=== PATIENT | male | born 1990 | race Caucasian/White ===

== ENCOUNTER 2020-11-17 17:45 | Emergency (ER) | payer BC ==
[~2020-11-17] VITALS: Ht 195.6 cm; Wt 120.2 kg
[~2020-11-17 17:45] MED LIST: ANTIBIODICS; BENZ100A PO; COUGH MED; FAMO20 PO; HYDACE5 PO; NAPR550 PO; PROM25 PO; RXALBOI INH; RXNAPNA550 PO
[2020-11-17] MEDS ORDERED: GUAI600T33 (17:56)
[2020-11-17 19:34] LABS: Influenza A, PCR Negative (NEGATIVE); Influenza B, PCR Negative (NEGATIVE); Resp Syncytial Virus, PCR Negative (NEGATIVE); SARS-Cov-2 (COVID-19) PCR, MMC Negative (NEGATIVE)
== END 2020-11-17 19:50 | disposition home or self-care (01) ==
LOC: ER 17:45
PROVIDERS: Emergency Medicine
DX: R05 Cough (principal); Z20.828 Contact with and (suspected) exposure to other viral communicable diseases; Z79.899 Other long term (current) drug therapy
CPT/HCPCS: 0241U; 99283

== ENCOUNTER → 2021-07-15 | Outpatient (CLI) | payer BC ==
[~2021-07-15] MED LIST changes: +GUAI600T33
[2021-07-17 17:20] LABS: CORONAVIRUS (COVID19) CSH-NRL Negative (Negative)
== END ==
LOC: LAB SHORT 13:05 → LAB 13:05
PROVIDERS: Physician Assistant Medical
DX: Z20.822 Contact with and (suspected) exposure to COVID-19 (principal)
CPT/HCPCS: U0003

== ENCOUNTER 2022-01-05 13:22 | Emergency (ER) | payer BC ==
[~2022-01-05] VITALS: Ht 195.6 cm; Wt 127.0 kg
[2022-01-05] MEDS ORDERED: ONDA4 PO (14:03)
[2022-01-05] MEDS ORDERED: BENZ100A PO (14:03)
== END 2022-01-05 14:17 | disposition home or self-care (01) ==
LOC: ER 13:22
DX: U07.1 COVID-19 (principal)
CPT/HCPCS: 99282

== ENCOUNTER → 2023-04-23 | Outpatient (CLI) | payer BC ==
[~2023-04-23] MED LIST changes: +ONDA4 PO
[2023-04-23 15:13] LABS: BASOPHILS ABSOLUTE AUTO 0.01 K/mm3 (0.00-0.23); BASOPHILS PERCENT AUTO 0 % (0-2); EOSINOPHILS ABSOLUTE AUTO 0.04 K/mm3 (0.00-0.68); EOSINOPHILS PERCENT AUTO 1 % (0-6); Hematocrit 41.8 % (37.0-53.0); Hemoglobin 15.1 g/dL (13.5-17.5); IMMATURE GRAN ABSOLUTE AUTO 0.02 K/mm3 (0.00-0.10); IMMATURE GRAN PERCENT AUTO 0 % (0-1); LYMPHOCYTES ABSOLUTE AUTO 2.05 K/mm3 (0.84-5.20); LYMPHOCYTES PERCENT AUTO 39 % (21-46); MONOCYTES PERCENT AUTO 10 % (4-13); Mean Corpuscular HGB 30.6 pg (26.0-34.0); Mean Corpuscular HGB Conc 36.1 g/dL (31.5-36.5); Mean Corpuscular Volume 85 fL (80-100); Mean Platelet Volume 10.3 fL (9.1-12.4); NEUTROPHILS ABSOLUTE AUTO 2.62 K/mm3 (1.96-9.15); NEUTROPHILS PERCENT AUTO 50 % (41-73); Platelet Count 199 K/mm3 (150-400); RDW Coefficient Variation 12.5 % (11.7-14.2); RDW Standard Deviation 37.8 fL (35.1-46.3); Red Blood Cell Count 4.93 M/mm3 (4.30-5.90); White Blood Cell Count 5.24 K/mm3 (4.00-11.30)
[2023-04-23 16:17] LABS: Albumin, Blood 3.7 g/dL (3.4-5.0); Albumin/Globulin Ratio 1.2 (0.8-1.8); Bilirubin, Total 0.6 mg/dL (0.1-1.0); Bun/Creatinine Ratio 12.1 (12.0-20.0); Calcium, Blood 8.7 mg/dL (8.5-10.1); Creatinine, Blood 1.16 mg/dL (0.60-1.20); Globulin, Blood 3.2 g/dL (2.2-4.0); Potassium, Blood 3.8 mmol/L (3.5-5.5); Total Protein, Blood 6.9 g/dL (6.4-8.2)
== END | disposition home or self-care (01) ==
LOC: LAB 15:08 → LAB SHORT 15:08
PROVIDERS: Emergency Medicine
DX: R10.9 Unspecified abdominal pain (principal)
CPT/HCPCS: 80053; 83690; 83880; 84484; 85025

== ENCOUNTER 2023-06-01 01:36 | Emergency (ER) | payer BC ==
[~2023-06-01] VITALS: Ht 195.6 cm; Wt 117.9 kg
[2023-06-01 02:12] LABS: BASOPHILS ABSOLUTE AUTO 0.05 K/mm3 (0.00-0.23); BASOPHILS PERCENT AUTO 1 % (0-2); EOSINOPHILS PERCENT AUTO 1 % (0-6); Hematocrit 41.5 % (37.0-53.0); Hemoglobin 15.1 g/dL (13.5-17.5); IMMATURE GRAN ABSOLUTE AUTO 0.01 K/mm3 (0.00-0.10); IMMATURE GRAN PERCENT AUTO 0 % (0-1); LYMPHOCYTES ABSOLUTE AUTO 4.21 K/mm3 (0.84-5.20); LYMPHOCYTES PERCENT AUTO 52 % (21-46); MONOCYTES ABSOLUTE AUTO 0.55 K/mm3 (0.16-1.47); MONOCYTES PERCENT AUTO 7 % (4-13); Mean Corpuscular HGB 30.7 pg (26.0-34.0); Mean Corpuscular HGB Conc 36.4 g/dL (31.5-36.5); Mean Corpuscular Volume 84 fL (80-100); Mean Platelet Volume 10.5 fL (9.1-12.4); NEUTROPHILS ABSOLUTE AUTO 3.25 K/mm3 (1.96-9.15); NEUTROPHILS PERCENT AUTO 40 % (41-73); Platelet Count 247 K/mm3 (150-400); RDW Coefficient Variation 12.5 % (11.7-14.2); RDW Standard Deviation 38.4 fL (35.1-46.3); Red Blood Cell Count 4.92 M/mm3 (4.30-5.90); White Blood Cell Count 8.17 K/mm3 (4.00-11.30)
[2023-06-01 02:30] LABS: Albumin, Blood 3.8 g/dL (3.4-5.0); Albumin/Globulin Ratio 1.2 (0.8-1.8); Bilirubin, Total 0.5 mg/dL (0.1-1.0); Bun/Creatinine Ratio 14.3 (12.0-20.0); Calcium, Blood 9.3 mg/dL (8.5-10.1); Creatinine, Blood 0.98 mg/dL (0.60-1.20); Globulin, Blood 3.3 g/dL (2.2-4.0); Potassium, Blood 3.3 mmol/L (3.5-5.5); Total Protein, Blood 7.1 g/dL (6.4-8.2)
[2023-06-01] MEDS ORDERED: IBU600 MG PO (03:09)
[2023-06-01 03:28] VITALS: BP 132/78
== END 2023-06-01 03:27 | disposition home or self-care (01) ==
LOC: ER 01:36
PROVIDERS: Emergency Medicine
DX: R07.89 Other chest pain (principal); Z87.891 Personal history of nicotine dependence
CPT/HCPCS: 71045; 80053; 83880; 84484; 85025; 93005; 93010; 96374; 99285-25; J1885

== ENCOUNTER → 2023-11-09 | Outpatient (CLI) | payer BC ==
[~2023-11-09] MED LIST changes: +IBU600 MG PO
== END ==
LOC: LAB 10:01 → LAB SHORT 10:01
DX: R53.83 Other fatigue (principal)
CPT/HCPCS: 84403; 84443

== ENCOUNTER 2025-03-09 06:23 | Day surgery (SDC) | payer BC ==
[2025-03-09] VITALS (18 sets, daily range): BP systolic 105–1347; BP diastolic 71–100
[~2025-03-09] VITALS: Ht 196 cm; Wt 122.6 kg
[~2025-03-09 06:23] MED LIST changes: +CeFAZolin Sodium 3,000 MG in NS 100 ML IV SCH; +GABA100 PO; +Lactated Ringer's 1,000 ML IV SCH
[2025-03-09] MEDS ORDERED: EPINEPhrine HCl 1 MG / ML 30ML Vial ONE (07:03)
[2025-03-09] MEDS ORDERED: Midazolam HCl 1MG / ML 2ML Vial ONE (07:15)
[2025-03-09] MEDS ORDERED: propofoL 20 ML IV ONE (07:15)
[2025-03-09] MEDS ORDERED: Tranexamic Acid 100 ML IV SCH (07:26)
[2025-03-09] MEDS ORDERED: FentaNYL Citrate 50 MCG/ML 2 ML Injection ONE ×3 (07:30→09:30)
--- NOTE | 2025-03-09 07:40 | NUR ---
History, Chart, Medications and Allergies reviewed before start of procedure. Patient up to Ambulate independently. Gait steady. Pre-Op teaching done. Pt verbalizes understanding. Patient States Post-Procedure ride home has been arranged.
[2025-03-09] MEDS ORDERED: Dexamethasone Sod Phos 10 MG/ML 1ML VIAL ONE (07:42)
[2025-03-09] MEDS ORDERED: Ondansetron HCl 2 MG / ML 2ML Vial ONE (07:42)
[2025-03-09] MEDS ORDERED: Ketorolac Tromethamine 30mg Vial ONE (07:42)
--- NOTE | 2025-03-09 07:42 | NUR ---
PT'S GLASSES & CELL PHONE TX TO PACU c PATIENT LABEL.
[2025-03-09] MEDS ORDERED: Lidocaine 1%-Epineph 1:100000 20 ML MDV INJ ONE (07:54)
[2025-03-09] MEDS ORDERED: FentaNYL Citrate 50 MCG/ML 2 ML Injection IV PRN ×2 (07:55→08:00)
[2025-03-09] MEDS ORDERED: Ondansetron HCl 2 MG / ML 2ML Vial IV PRN (07:55)
[2025-03-09] MEDS ORDERED: Labetalol HCL 5 MG/ML 4ML Injection (Single Dose) IV PRN (08:00)
[2025-03-09] MEDS ORDERED: HYDROmorphone HCl/Pf 1MG SYR IV PRN ×2 (08:00)
[2025-03-09] MEDS ORDERED: OxyCODONE HCL 5 MG TAB PO PRN (09:20)
--- NOTE | 2025-03-09 10:58 | NUR ---
DISCHARGE PT A&OX4/VSS/RA/ALICIA PO H20/PAIN TREATED WITH OXY 10MG/DRESSED WITH ASSIST FROM /RESEARCH MANAGEMENT ASSOCIATE, DC INS PROVIDED/PT & W REP UNDERSTANDING NWB/SHOWER-DRESSING 48 HOURS BEFORE REMOVAL/OCEANOLOGIST CRUTCHES AT 'S OFFICE/SCRIPT AT PHARMACY. LEFT VIA WC WITH DC VOL WITH ALL PERSONAL POSSESSIONS INCLUDING DC PACKET.
== END 2025-03-09 23:00 | disposition home or self-care (01) ==
LOC: ORSCMMR 06:23 → ORD 07:30 → ORSCMMR 07:30
PROVIDERS: Orthopaedic Surgery Sports Medicine
PROC: 0SBD4ZZ Excision of Left Knee Joint, Percutaneous Endoscopic Approach (ICD-10-PCS; principal; 2025-03-09 07:30)
DX: S83.252A Bucket-handle tear of lateral meniscus, current injury, left knee, initial encounter (principal); I10 Essential (primary) hypertension; Z87.891 Personal history of nicotine dependence; F17.220 Nicotine dependence, chewing tobacco, uncomplicated
CPT/HCPCS: A9270; C1713; J0171; J0690; J1100; J1885; J2250; J2405; J2704; J3010; J7120